=== PATIENT | female | born 1960 | race African-American/Black ===

== ENCOUNTER 2021-09-02 08:26 | Inpatient (IN) | payer SELFPAY ==
[~2021-09-02] VITALS: Ht 162.6 cm; Wt 73.1 kg
[2021-09-02 08:20] VITALS: BP 126/83
[2021-09-02] MEDS: IV DEXTROSE 5 %-0.45 % NACL 1,000 ML IV SCH ×2 (10:00→18:11)
--- NOTE | 2021-09-02 10:13 | HP ---
DATE OF SERVICE: 09/02/2021 ADMIT DATE: 09/02/2021 HISTORY OF PRESENT ILLNESS: The patient is a 61-year-old -[place] female patient who was apparently brought to the Emergency Department by Emergency Medical Services from the [facility] the [place] with altered mental status. Her significant other found her on the ground. She stated to the EMS that she uses methamphetamine regularly and had been drinking. EMS states there was a bottle of [employer]es that had about 1/4 of it gone, could not find any other pill bottles or paraphernalia in the house. She apparently has no known medical or surgical problems. In attempt to contact her significant other by phone number, but that was unsuccessful. She was extensively investigated in the Emergency Room and has had lab work and imaging studies. Her lab work showed that she has mild thrombocytopenia. Her blood gases show she was slightly acidotic and her chemistry showed that she has impaired kidney function, lactic acidosis with a serum lactic acid of 4.1. Her ammonia was high also at 84 and her AST, ALT have slightly elevated, although her total bilirubin and alkaline phosphatase are normal. Her urinalysis was essentially unremarkable. Her toxic screen was negative. She was swabbed for the coronavirus and her rapid testing was negative. She did have a CT scan of the head done, which showed no abnormal attenuation within the brain parenchyma. No evidence of acute intracranial hemorrhage or extraaxial fluid collection, no mass effect or midline shift, ventricular size is appropriate. Basal cisterns are patent. There is no fracture identified. Good white differentiation is preserved. Globes and orbits are within normal limits. Paranasal sinuses and mastoid air cells are clear. Her chest x-ray showed mild bibasilar lung atelectasis or infiltrate and a CT scan of the abdomen and pelvis showed a 3.1 cm hypodense lesion identified in the dome of the right lobe of the liver, likely hypodense lesion and mild prominent pancreatic duct, nonspecific and mild bibasilar lung atelectasis or infiltrate. The patient was transferred to [facility] for further evaluation and treatment with altered mental status, lactic acidosis and possible UTI. 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 The patient denied any history of hypertension or hyperlipidemia. PAST SURGICAL HISTORY: Significant for total abdominal hysterectomy and bilateral salpingo-oophorectomy. ALLERGIES: She has no known drug allergies. MEDICATIONS: She is currently on no medication. FAMILY HISTORY: Noncontributory. SOCIAL HISTORY: She lives alone. She continued to smoke and drink alcohol. Dictation Ends Here ALEX/CHRISTELLE DR: Brenda TID: [id number]
[2021-09-02 10:35] VITALS: BP 123/81
[2021-09-02 12:17] LABS: PROTHROMBIN TIME PATIENT 13.7 SEC (11.7-14.0)
[2021-09-02] MEDS: LACTULOSE 20 GM/30 ML SOLUTION. PO SCH ×2 (13:17→21:30)
[2021-09-02 15:00] VITALS: BP 102/67
[2021-09-02 19:45] VITALS: BP 119/63
[2021-09-02 23:07] VITALS: BP 136/60
[2021-09-03 03:00] VITALS: BP 127/65
[2021-09-03] MEDS: IV DEXTROSE 5 %-0.45 % NACL 1,000 ML IV SCH ×2 (06:30→14:11)
[2021-09-03 07:00] VITALS: BP 185/81
[2021-09-03] MEDS: LACTULOSE 20 GM/30 ML SOLUTION. PO SCH ×3 (08:31→20:33)
--- NOTE | 2021-09-03 08:51 | PN ---
DATE: 09/03/2021 SUBJECTIVE: The patient is sitting at the edge of the bed, eating her breakfast. She is very extremely angry as the nursing staff did not wake her up. Otherwise, denied any other complaint. PHYSICAL EXAMINATION: GENERAL: When I examined her, she looked well and was clearly in no apparent respiratory distress. No pallor, jaundice, cyanosis. No lymphadenopathy, no thyromegaly, no jugular venous distention. No lower limb edema. VITAL SIGNS: Her heart rate was 60, blood pressure was 127/65, temperature was 97, respiratory rate was 18 and oxygen saturation was 98%. HEAD, EYES, EARS, NOSE AND THROAT: Normocephalic, atraumatic. NECK: Supple. HEART: Showed normal first and second heart sounds. No gallop or murmur. CHEST: Showed central trachea, equal bilateral chest expansion air entry, vesicular breath sounds. No crepitation or rhonchi. ABDOMEN: Distended, soft, nontender. NEUROLOGIC: She is definitely more awake, alert, continued to have expressive aphasia, sometimes difficult to understand, has mild residual right-sided weakness. Her intake and output were incompletely recorded. LABORATORY DATA: Today's labs are still pending at the time of this dictation. Her prothrombin time was 13.7, INR 1.1. ASSESSMENT: 1. Altered mental status, resolved, likely due to hepatic encephalopathy. 2. Left middle cerebral artery territory infarct with right-sided hemiplegia and aphasia. 3. Hypertension. 4. Hyperlipidemia. 5. Alcoholism. 6. She also has a 3.1 cm hypodense lesion identified in the dome of the right lobe of the liver. PLAN: To continue with her current plan of management. Continue with the IV fluid. Continue with lactulose. Continue with ceftriaxone for UTI and the alpha fetoprotein is high, I will consult the ground school instructor and perhaps surgeon also. LAURA DR: Brenda TID: [id number]
[2021-09-03] MEDS ORDERED: cefTRIAXone IV Push 1 GM VIAL. IVP SCH (09:00)
[2021-09-03 10:37] VITALS: BP 198/76
[2021-09-03 13:17] LABS: BASO % 0 % (0-3); EOS # 0.2 x10^3/uL (0.0-0.7); EOS % 3 % (0-3); LYMPH # 1.9 x10^3/uL (1.0-4.8); LYMPH % 36 % (24-48); MEAN CORPUSCULAR HEMOGLOBIN 32 pg (25-35); MEAN CORPUSCULAR HGB CONC 33 g/dL (31-37); MEAN CORPUSCULAR VOLUME 98 fL (79-100); MONO # 0.6 x10^3/uL (0.0-1.1); MONO % 11 % (0-9); NEUT # 2.7 x10^3/uL (1.8-7.7); NEUT % 49 % (31-73); PLATELET COUNT 119 x10^3/uL (140-400); RED CELL DISTRIBUTION WIDTH 13.8 % (11.5-14.5); WHITE BLOOD COUNT 5.4 x10^3/uL (4.0-11.0)
[2021-09-03 13:39] LABS: ALBUMIN 3.4 g/dL (3.4-5.0); ALBUMIN/GLOBULIN RATIO 0.9 (1.0-1.7); CALCIUM 8.1 mg/dL (8.5-10.1); GFR 67.8; POTASSIUM 4.1 mmol/L (3.5-5.1); TOTAL BILIRUBIN 0.4 mg/dL (0.2-1.0); TOTAL PROTEIN 7.2 g/dL (6.4-8.2)
[2021-09-03 14:58] VITALS: BP 117/62
[2021-09-03 19:00] VITALS: BP 183/80
[2021-09-03] MEDS: LACTOBACILLUS RHAMNOSUS GG 1 CAPSULE. PO SCH (20:33)
[2021-09-03 23:00] VITALS: BP 143/80
[2021-09-04] MEDS: IV DEXTROSE 5 %-0.45 % NACL 1,000 ML IV SCH (02:21)
[2021-09-04 03:00] VITALS: BP 163/78
[2021-09-04 07:00] VITALS: BP 151/71
[2021-09-04] MEDS: LACTULOSE 20 GM/30 ML SOLUTION. PO SCH ×3 (09:28→19:35)
[2021-09-04] MEDS: LACTOBACILLUS RHAMNOSUS GG 1 CAPSULE. PO SCH ×2 (09:28→19:35)
[2021-09-04] MEDS: CEFDINIR 300 MG CAPSULE PO SCH ×2 (09:33→19:35)
--- NOTE | 2021-09-04 09:40 | PDOC2 ---
GI CONSULT Date of Service: DATE: 09/04/21 TIME: 09:40 Reason For Consult: liver mass/liver cirrhosis and elevated AFP HPI: HPI: 61 y/o female admitted w/ AMS w/ elevated ammonia (now normal) and UTI. Significant labs: AST 53, ALT 72, plt 119, AFP 9.9. Per review of other notes: CT A/P showed 3.1 cm hypodense lesion in the dome of the right lobe of the liver and mild prominent pancreatic duct. H/o alcohol/substance abuse. Her mental status has improved but she is likely still a questionable historian. "I saw a commercial on tv about being confused and I got scared." She reports h/o "hepatitis because I used to shoot up dope." Says she "just started" drinking alcohol. Denies reflux, dysphagia, n/v, abd pain, diarrhea, constipation, weight loss, hematochezia, and melena. No previous EGD. Had a colonoscopy years ago in [place] that she thinks turned out okay. Denies GB, pancreas, and PUD history. Takes Advil sometimes. PMH: PMH: per chart: HTN, HLD, UTI, CVA hysterectomy w/ BSO FH: Family History: Other (parents were alcoholics) Social History: Smoke: <1 pack per day ALCOHOL: other (she denies heavy use - chart indicates otherwise) Drugs: Cocaine (tox +2014) ROS: GEN: Denies fevers, chills, sweats HEENT: Denies blurred vision, sore throat CV: Denies chest pain RESP: Denies shortness of air, cough GI: Per HPI : Denies hematuria, dysuria ENDO: Denies weight changes NEURO: +confusion MSK: Denies weakness, joint pain/swelling SKIN: Denies jaundice, pruritus Vitals: Vitals: Vital Signs Date Time Temp Pulse Resp B/P (MAP) Pulse Ox O2 Delivery O2 Flow Rate FiO2 09/04/21 09:29 96 151/71 09/04/21 07:00 97.8 18 97 Room Air 97.8 Labs: Labs: Laboratory Tests Test 09/03/21 13:00 White Blood Count 5.4 x10^3/uL (4.0-11.0) Red Blood Count 4.40 x10^6/uL (3.50-5.40) Hemoglobin 14.0 g/dL (12.0-15.5) Hematocrit 43.0 % (36.0-47.0) Mean Corpuscular Volume 98 fL (79-100) Mean Corpuscular Hemoglobin 32 pg (25-35) Mean Corpuscular Hemoglobin Concent 33 g/dL (31-37) Red Cell Distribution Width 13.8 % (11.5-14.5) Platelet Count 119 x10^3/uL (140-400) Neutrophils (%) (Auto) 49 % (31-73) Lymphocytes (%) (Auto) 36 % (24-48) Monocytes (%) (Auto) 11 % (0-9) Eosinophils (%) (Auto) 3 % (0-3) Basophils (%) (Auto) 0 % (0-3) Neutrophils # (Auto) 2.7 x10^3/uL (1.8-7.7) Lymphocytes # (Auto) 1.9 x10^3/uL (1.0-4.8) Monocytes # (Auto) 0.6 x10^3/uL (0.0-1.1) Eosinophils # (Auto) 0.2 x10^3/uL (0.0-0.7) Basophils # (Auto) 0.0 x10^3/uL (0.0-0.2) Sodium Level 146 mmol/L (136-145) Potassium Level 4.1 mmol/L (3.5-5.1) Chloride Level 108 mmol/L (98-107) Carbon Dioxide Level 31 mmol/L (21-32) Anion Gap 7 (6-14) Blood Urea Nitrogen 10 mg/dL (7-20) Creatinine 1.0 mg/dL (0.6-1.0) Estimated GFR (Cockcroft-Gault) 67.8 BUN/Creatinine Ratio 10 (6-20) Glucose Level 71 mg/dL (70-99) Calcium Level 8.1 mg/dL (8.5-10.1) Total Bilirubin 0.4 mg/dL (0.2-1.0) Aspartate Amino Transf (AST/SGOT) 53 U/L (15-37) Alanine Aminotransferase (ALT/SGPT) 72 U/L (14-59) Alkaline Phosphatase 87 U/L (46-116) Ammonia 10 mcmol/L (11-34) Total Protein 7.2 g/dL (6.4-8.2) Albumin 3.4 g/dL (3.4-5.0) Albumin/Globulin Ratio 0.9 (1.0-1.7) Tumor Marker Alpha Fetoprotein 9.9 ng/mL (0.0-8.3) Allergies: Coded Allergies: No Known Drug Allergies (Unverified , 02/16/15) Medications: Current Medications Medications (Trade) Dose Ordered Sig/Yonatan Route PRN Reason Start Time Stop Time Status Last Admin Dose Admin Amlodipine Besylate (Norvasc) 10 mg DAILY PO 09/03/21 12:00 09/04/21 09:29 Lactobacillus Rhamnosus (Culturelle) 1 cap BID PO 09/03/21 21:00 09/04/21 09:28 Cefdinir (Omnicef) 300 mg BID PO 09/04/21 09:00 09/04/21 09:33 Imaging: Imaging: per HPI PE: GEN: NAD HEENT: Atraumatic, PERRL LUNGS: CTAB HEART: RRR ABD: S/ND/NT EXTREMITY: No edema SKIN: No rashes, no jaundice NEURO/PSYCH: A & O, probably forgetful A/P: A/P: AMS w/ hyperammonemia and UTI Mild thrombocytopenia, mildly elevated AST and ALT, mildy elevated AFP Right hepatic lesion, mild prominent PD ?h/o hepatitis H/o alcohol/substance abuse CRC screen - colonoscopy years ago/results unavailable -- Check US for further eval of hepatic lesion/eval for cirrhotic changes. Consider outpt MRI and/or follow-up w/ hepatology @ [facility]. Check viral Hepatitis panel for completeness. Continue lactulose - goal is 3-4 stools daily. Stop alcohol/drugs. D/w Dr. Briggs - ?possible DC today? - Dr. Abarca will see pt later on today/this evening. MOHAMUD TAVAREZ Sep 04, 2021 09:40
--- NOTE | 2021-09-04 09:40 | HP ---
DATE OF SERVICE: 09/02/2021 ADMIT DATE: 09/02/2021 ADDENDUM: The patient stated that she has not used amphetamine for almost a week now. REVIEW OF SYSTEMS: As per history of present illness. PHYSICAL EXAMINATION: GENERAL: On arrival to the Emergency Room, the patient looked well and was clearly in no apparent respiratory distress. No pallor, jaundice, cyanosis or thyromegaly. No jugular venous distention. No lower limb edema. VITAL SIGNS: Her heart rate was 70, blood pressure was 126/72, her temperature was 97.6, respiratory rate was 18 and oxygen saturation was 93% on room air. HEAD, EYES, EARS, NOSE, AND THROAT: Normocephalic, atraumatic. NECK: Supple. HEART: Normal first and second heart sounds, no gallop, rub or murmur. CHEST: Showed central trachea, equal bilateral chest expansion, air entry, vesicular breath sounds. I could not appreciate any crepitation or rhonchi. ABDOMEN: Distended, soft, nontender. NEUROLOGIC: She was awake, alert. She has what seems to be expressive aphasia, sometimes it is difficult to understand; however, she moves all extremities without difficulty. Her affect, judgment and mood were normal.. LABORATORY DATA: Showed a white cell count 4700, hemoglobin 14.7, hematocrit 45, MCV 101, and a platelet count of 139,000 with normal manual differential. Her arterial blood gas showed a pH of 7.31, pCO2 of 45, pO2 of 40, bicarb was 23 and oxygen saturation was 96% on FiO2 of 21%. Her chemistry showed a serum sodium 141, potassium 4.3, chloride 105, bicarbonate 20, anion gap of 16, BUN 26, creatinine 1.5. Estimated GFR was 42 mL per minute. Her glucose 162, calcium was 8.7, phosphorus 6.5, magnesium was 2.7. Total bilirubin and alkaline phosphatase normal. AST, ALT were elevated. Her serum ammonia was 84. CK was 400, total protein was 6.9, albumin was 3.8. Urinalysis showed the urine was yellow, hazy with a pH of 5.5, specific gravity 1.030. There is small amount of protein. Her glucose was 250, urine was negative for ketones. There was small amount of blood, positive for nitrite and negative for leukocyte esterase, there were 3-5 rbc's, 1-4 wbc's and many bacteria. Her tox screen was negative for opiates, methadone, acetaminophen, barbiturates, phencyclidine, amphetamine, methamphetamine, benzodiazepine, cocaine, cannabinoids and blood alcohol was less than 10. Her coronavirus by rapid testing was negative. CT scan of the head shows no acute intracranial finding and chest x-ray showed mild bibasilar lung atelectasis or infiltrate. Her CT scan showed no evidence of free air identified in the abdomen. There is a 3.1 x 3 cm hypodense lesions identified in the dome of the right lobe of the liver. The spleen, adrenal glands are grossly unremarkable. The gallbladder is somewhat limited. The stomach is minimally distended, minimal prominent appearing pancreatic duct. The small bowel is not dilated with moderate feces and gas identified in the colon. Urinary bladder is mildly distended. Bilateral kidneys enhance symmetrically. There are moderate degenerative changes in thoracic and lumbar spine. ASSESSMENT AND PLAN: The patient was admitted with altered mental status. She has mildly elevated liver enzyme and hyperammonemia. She is alcoholic and she might have alcoholic liver disease. She has also a lesion at the dome of the right diaphragm. She has a urinary tract infection and lactic acidosis and has mild thrombocytopenia. My plan is to start her on IV fluid, IV antibiotic. I will check her prothrombin time, INR and start her on IV Rocephin. ALEX/TEAGAN/PRADIP OWENS: Brenda TID: [id number]
[2021-09-04 11:00] VITALS: BP 174/93
--- NOTE | 2021-09-04 13:03 | NUR ---
SS following for discharge planning. SS reviewed pt chart and discussed with pt RN. Pt is from home with spouse and is currently on room air. Pt on PO Cedefinir. GI consulted. Self pay. Med Assist following. Discharge plan is currently to home when medically ready for discharge. SS will continue to follow for discharge planning.
--- NOTE | 2021-09-04 13:30 | PN ---
DATE: 09/04/2021 SUBJECTIVE: The patient is sitting on the edge of the bed, eating her breakfast comfortably, in no apparent distress. On questioning her, she denied any complaint. PHYSICAL EXAMINATION: GENERAL: When I examined her, she looked well and was clearly in no apparent respiratory distress. No pallor, jaundice, cyanosis or thyromegaly. No jugular venous distention. No lower limb edema. VITAL SIGNS: Her heart rate was 68, blood pressure was 163/78, temperature was 98.2, respiratory rate was 16 and oxygen saturation was 98% on room air. The rest of clinical exam stable. LABORATORY DATA: Showed white cell count 5400, hemoglobin 14, hematocrit 43, MCV 98 and platelet count of 119,000. Her serum sodium was 146, potassium 4.1, chloride 108, bicarbonate 31, anion gap of 7, BUN 10, creatinine 1, estimated GFR was 67 mL per minute. Her glucose was 71, calcium was 8.1. Total bilirubin and alkaline phosphatase are normal. AST, ALT slightly elevated. Her ammonia came down to 10 micromol per liter. Total protein was 7.2, albumin was 3.4. Her alpha fetoprotein was 9.9, with the normal range between 0.0-8.3. ASSESSMENT: 1. Altered mental status, resolved. The patient is more awake, alert. Her ammonia level is down to 10 from 84. 2. Left middle cerebral artery territory infarct with right-sided hemiplegia and aphasia. 3. Hypertension. 4. Hyperlipidemia. 5. Alcoholism. 6. She also has a 3.1 cm hypodense lesions identified in the dome of the right lobe of the liver. Her alpha fetoprotein is 9.1. PLAN: To continue with IV antibiotic in the form of ceftriaxone. Continue with lactulose. Continue with all her other medication. I will consult the gastroenterology team regarding this hypodense lesion in the dome of the right liver as well as the slightly elevated alpha fetoprotein and if they do not recommend any further intervention, the patient can be discharged home. FREDDY/PRADIP DR: Brenda TID: [id number]
[2021-09-04 15:00] VITALS: BP 124/80
[2021-09-04 19:45] VITALS: BP 141/66
--- NOTE | 2021-09-04 20:25 | RAD ---
EXAMINATION: US ABDOMEN COMPLETE INDICATION: 61 years, Female, hepatic lesion seen on CT exam: Elevated alpha-fetoprotein. COMPARISON: CT dated 09/02/2021 TECHNIQUE: Grayscale, color Doppler and limited spectral Doppler images of the abdomen were obtained. FINDINGS: LIVER: SIZE (LENGTH): 18.0 cm. ECHOGENICITY: Normal. PARENCHYMA: Homogeneous echotexture. There is a 3.0 x 3.1 cm, ill-defined avascular heterogeneous hyp oechoic mass in the right hepatic dome corresponds to CT findings. INTRAHEPATIC BILE DUCTS: Nondilated. PORTAL VEIN: Patent with normal hepatopedal flow. GALLBLADDER: MORPHOLOGY: Contracted lumen. No pericholecystic free fluid. LUMEN: Normal. COMMON BILE DUCT DIAMETER: 2.6 RIGHT KIDNEY: MEASURES: 9.5 cm in length. MORPHOLOGY/PARENCHYMA: Normal corticomedullary differentiation with no shadowing calculus or discrete masses. COLLECTING SYSTEM: No hydronephrosis. LEFT KIDNEY: MEASURES: 9.5 cm in length MORPHOLOGY/PARENCHYMA: Normal corticomedullary differentiation with no shadowing calculus or discrete masses. COLLECTING SYSTEM: No hydronephrosis. SPLEEN: SIZE (LENGTH): 10.2 cm PARENCHYMA: Unremarkable. PANCREAS: VISUALIZED PORTIONS: Head and body. APPEARANCE: Within normal limits. OTHER: RETROPERITONEUM, INFERIOR VENA CAVA: Normal caliber. AORTA: Normal caliber. FLUID:No free fluid. IMPRESSION: 1. Ill-defined 3.1 cm heterogeneous hypoechoic mass in the right hepatic dome corresponds to CT findi ng, indeterminate. Recommend further evaluation with MRI liver without and with IV contrast. 2. Unremarkable spleen. Electronically signed by: Paris Tenorio MD (09/04/2021 8:22 PM) [facility]
[2021-09-04 23:40] VITALS: BP 123/74
[2021-09-05 03:40] VITALS: BP 154/85
[2021-09-05 07:00] VITALS: BP 136/89
[2021-09-05] MEDS ORDERED: CEFD300C PO (08:47)
[2021-09-05] MEDS ORDERED: LACT20SO PO (08:47)
[2021-09-05] MEDS ORDERED: AMLO-187 PO (08:47)
--- NOTE | 2021-09-05 10:00 | PDOC ---
Date of Service: DATE: 09/05/21 TIME: 09:56 Subjective: Subjective: "He said I could go today." Feels fine. Agreeable to outpt follow-up w/ [facility] hepatology. Objective: Vital Signs: Vital Signs Date Time Temp Pulse Resp B/P (MAP) Pulse Ox O2 Delivery O2 Flow Rate FiO2 09/05/21 07:00 98.4 71 18 136/89 (105) 98 Room Air 98.4 Labs: Laboratory Tests Test 09/04/21 12:40 Hepatitis A IgM Antibody Nonreactive Hepatitis B Surface Antigen Nonreactive Hepatitis B Core IgM Antibody Nonreactive Hepatitis C IgG Antibody Reactive Imaging: Abd US 09/04 FINDINGS: LIVER: SIZE (LENGTH): 18.0 cm. ECHOGENICITY: Normal. PARENCHYMA: Homogeneous echotexture. There is a 3.0 x 3.1 cm, ill-defined avascular heterogeneous hypoechoic mass in the right hepatic dome corresponds to CT findings. INTRAHEPATIC BILE DUCTS: Nondilated. PORTAL VEIN: Patent with normal hepatopedal flow. GALLBLADDER: MORPHOLOGY: Contracted lumen. No pericholecystic free fluid. LUMEN: Normal. COMMON BILE DUCT DIAMETER: 2.6 RIGHT KIDNEY: MEASURES: 9.5 cm in length. MORPHOLOGY/PARENCHYMA: Normal corticomedullary differentiation with no shadowing calculus or discrete masses. COLLECTING SYSTEM: No hydronephrosis. LEFT KIDNEY: MEASURES: 9.5 cm in length MORPHOLOGY/PARENCHYMA: Normal corticomedullary differentiation with no shadowing calculus or discrete masses. COLLECTING SYSTEM: No hydronephrosis. SPLEEN: SIZE (LENGTH): 10.2 cm PARENCHYMA: Unremarkable. PANCREAS: VISUALIZED PORTIONS: Head and body. APPEARANCE: Within normal limits. OTHER: RETROPERITONEUM, INFERIOR VENA CAVA: Normal caliber. AORTA: Normal caliber. FLUID:No free fluid. IMPRESSION: 1. Ill-defined 3.1 cm heterogeneous hypoechoic mass in the right hepatic dome corresponds to CT finding, indeterminate. Recommend further evaluation with MRI liver without and with IV contrast. 2. Unremarkable spleen. PE: GEN: NAD - standing in restroom changing clothes to leave LUNGS: room air HEART: RRR ABD: non-distended NEURO/PSYCH: A & O 3 A/P: AMS w/ hyperammonemia and UTI - resolving Hep C Ab + (PCR pending) Right hepatic lobe mass, mildly elevated AFP H/o alcohol/substance abuse -- DC per primary. Our office can help refer for follow-up w/ [facility]ology and arrange MRI. No alcohol/drugs. Continue lactulose for goal of 3-4 stools daily. Justicifation of Admission Dx: Justifications for Admission: Justification of Admission Dx: Yes MOHAMUD TAVAREZ Sep 05, 2021 10:00
--- NOTE | 2021-09-05 10:09 | NUR ---
SS following up with discharge planning. SS reviewed pt chart and discussed with pt RN. Pt is currently on room air. Self pay. Med Assist following. Discharge order on the chart for home with self care.
[2021-09-05] MEDS: LACTOBACILLUS RHAMNOSUS GG 1 CAPSULE. PO SCH (10:25)
[2021-09-05] MEDS: LACTULOSE 20 GM/30 ML SOLUTION. PO SCH (10:25)
[2021-09-05] MEDS: CEFDINIR 300 MG CAPSULE PO SCH (10:25)
[2021-09-05 11:00] VITALS: BP 157/88
--- NOTE | 2021-09-05 14:00 | NUR ---
Discharge Note: [facility]TE[facility] Discharge instructions and discharge home medications reviewed with Patient and a copy given. All questions have been answered and understanding verbalized. 3 scripts given to patient, see paper chart IV discontinued, no complications Patient discharged to home with self care via [facility]. All belongings taken home with patient
[2021-09-05 20:09] LABS: HCV ULTRA QUANT PCR 3780000 IU/mL (.)
== END 2021-09-05 13:30 | disposition home or self-care (01) | DRG 690 ==
LOC: EDSEX 08:26 → 6 SOUTH 08:26
PROVIDERS: ADMIT Internal Medicine; ATTEND Internal Medicine
DX: N39.0 Urinary tract infection, site not specified (principal); E72.20 Disorder of urea cycle metabolism, unspecified; E87.2 Acidosis; G81.91 Hemiplegia, unspecified affecting right dominant side; D69.6 Thrombocytopenia, unspecified; E78.5 Hyperlipidemia, unspecified; F10.20 Alcohol dependence, uncomplicated; F17.210 Nicotine dependence, cigarettes, uncomplicated; I10 Essential (primary) hypertension; K74.60 Unspecified cirrhosis of liver; Z86.73 Personal history of transient ischemic attack (TIA), and cerebral infarction without residual deficits; Z90.710 Acquired absence of both cervix and uterus; R74.8 Abnormal levels of other serum enzymes; Z60.2 Problems related to living alone
CPT/HCPCS: 36415; 76700; 80053; 82105; 82140; 85025; 85610; 86705; 86709; 86803; 87340; 87522; J0696; J7042; G0378